=== PATIENT | female | born 1935 | race Caucasian/White ===

== ENCOUNTER → 2018-07-21 | Outpatient (CLI) | payer MEDICARE ==
[~2018-07-21] MED LIST: ALBU2.5V8 INH; ALPR0.5T6 PO; AMLO10TA8 PO; FLUT1DIS3 IH; FLUT9.9S NS; GADOBUTROL 7.5 MMOL/7.5 ML VIAL IV ONE; HYDR12.575 PO; LISI-130 PO; OMEP20CA10 PO; SERT100T PO
--- NOTE | 2018-07-21 13:17 | KCIC ---
MRI Brain with and without contrast History: Achalasia, memory deficit, speech difficulty for about 9 months, Givens's palsy Technique: Multiplanar, multi sequential pre and postcontrast MR imaging was performed of the brain. Comparison: June 15, 2010 Findings: There is motion degradation. There is mild supratentorial atrophy somewhat greater of the parietal lobes. Ventricular size is proportionate to the sulcal spaces. There is mild T2 and FLAIR hyperintense abnormality of the supratentorial periventricular white matter bilaterally and also some minimal involvement of the deep white matter greatest of the frontoparietal lobes, overall extent fairly similar compared with previous exam. Moderate T2 and FLAIR hyperintense signal abnormality of the rudy has progressed in interval. There is no nodular parenchymal or leptomeningeal enhancement, intra-axial mass effect, midline shift, extra-axial fluid collection. There is no significant hemosiderin deposition of the brain parenchyma. There has been lens surgery bilaterally. There is preservation of the major intracranial flow-voids at the skull base. There is very minimal patchy ethmoid air cell mucosal thickening. Mastoid air cells are overall aerated. Cerebellar tonsils are normal in location. There is preservation of marrow signal of the clivus. There is no abnormality of pineal gland or pituitary gland. Small foci of signal change of right parietal and central suboccipital scalp may be due to complex sebaceous cysts, do not convincingly enhance. Impression: 1. There is no evidence of recent infarct or abnormal intracranial enhancement. There is multifocal scattered T2 and FLAIR hyperintense signal abnormality of the supratentorial parenchyma rudy, progressed of the rudy in the interval. Nonspecific findings are more commonly due to chronic microvascular ischemic disease in a patient this age. There is mild supratentorial atrophy somewhat greater of the parietal lobes. Electronically signed by: Saurabh Bradley MD (07/21/2018 1:14 PM) [facility]
== END | disposition home or self-care (01) ==
LOC: KCIC MRI 11:28
PROVIDERS: ATTEND Family Medicine
DX: G31.89 Other specified degenerative diseases of nervous system (principal); R90.82 White matter disease, unspecified
CPT/HCPCS: 70553; A9585

== ENCOUNTER 2018-11-11 20:13 | Inpatient (IN) | payer MEDICARE ==
[~2018-11-11] VITALS: Ht 149.9 cm; Wt 72.1 kg
[~2018-11-11 20:13] MED LIST changes: -GADOBUTROL 7.5 MMOL/7.5 ML VIAL IV ONE
[2018-11-11] MEDS ORDERED: IV NORMAL SALINE 500ML BAG 500 ML IV ONE (20:30)
[2018-11-11 20:41] LABS: BASO % 0 % (0-3); EOS # 0.1 x10^3/uL (0.0-0.7); EOS % 2 % (0-3); HEMATOCRIT 36.7 % (36.0-47.0); HEMOGLOBIN 12.8 g/dL (12.0-15.5); LYMPH # 1.9 x10^3/uL (1.0-4.8); LYMPH % 31 % (24-48); MEAN CORPUSCULAR HEMOGLOBIN 31 pg (25-35); MEAN CORPUSCULAR HGB CONC 35 g/dL (31-37); MEAN CORPUSCULAR VOLUME 90 fL (79-100); MONO # 0.4 x10^3/uL (0.0-1.1); MONO % 6 % (0-9); NEUT # 3.9 x10^3/uL (1.8-7.7); NEUT % 61 % (31-73); PLATELET COUNT 231 x10^3/uL (140-400); RED BLOOD COUNT 4.09 x10^6/uL (3.50-5.40); RED CELL DISTRIBUTION WIDTH 14.2 % (11.5-14.5); WHITE BLOOD COUNT 6.4 x10^3/uL (4.0-11.0)
[2018-11-11 20:56] LABS: ALBUMIN 3.8 g/dL (3.4-5.0); ALBUMIN/GLOBULIN RATIO 1.1 (1.0-1.7); CALCIUM 9.3 mg/dL (8.5-10.1); CREATININE 1.2 mg/dL (0.6-1.0); GFR 43.1; MAGNESIUM 1.8 mg/dL (1.8-2.4); TOTAL BILIRUBIN 0.6 mg/dL (0.2-1.0); TOTAL PROTEIN 7.4 g/dL (6.4-8.2)
--- NOTE | 2018-11-11 20:56 | RAD ---
CT HEAD INDICATION: New onset seizure COMPARISON: 03/11/2011 Exposure: One or more of the following individualized dose reduction techniques were utilized for this examination: 1. Automated exposure control 2. Adjustment of the mA and/or kV according to patient size 3. Use of iterative reconstruction technique TECHNIQUE: 5 mm contiguous axial images were obtained from the skull base to the vertex in both bone and soft tissue algorithm. FINDINGS: Mild bilateral periventricular white matter hypodensities likely chronic small vessel ischemic disease. No evidence of acute intracranial hemorrhage. No extra-axial fluid collections. No mass effect or midline shift. Ventricular size is appropriate. Basal cisterns are patent. No fractures identified.Ramirez-white differentiation is preserved.Globes and orbits are within normal limits. Paranasal sinuses and mastoid air cells are clear. IMPRESSION: No acute intracranial findings. Electronically signed by: Jun Mas MD (11/11/2018 8:53 PM) [facility]
[2018-11-11 20:59] LABS: POTASSIUM 2.7 mmol/L (3.5-5.1)
--- NOTE | 2018-11-11 21:00 | RAD ---
EXAM: CHEST 1 VIEW History: Altered mental status COMPARISON: 03/11/2011 TECHNIQUE: Single portable radiograph of the chest FINDINGS: Mild cardiomegaly. Mild linear right lung base atelectasis or scarring. The costophrenic sulci are clear and well demarcated. IMPRESSION: Linear right lung base atelectasis or scarring. Electronically signed by: Jun Mas MD (11/11/2018 8:57 PM) [facility]
[2018-11-11 21:15] LABS: BILIRUBIN,URINE NEGATIVE (NEG); CLARITY,URINE CLEAR; COLOR,URINE YELLOW; NITRITE,URINE NEGATIVE (NEG); PH,URINE 7.5; PROTEIN,URINE NEGATIVE (NEG-TRACE)
[2018-11-11 21:25] LABS: BACTERIA,URINE FEW /HPF (0-FEW); SQUAMOUS EPITHELIAL CELL,UR FEW /LPF; WBC,URINE TNTC /HPF (0-4)
--- NOTE | 2018-11-11 21:47 | PHYS DOC ---
Past Medical History Past Medical History: Anxiety, Asthma, Bronchitis, Depression, GERD, High Cholesterol, Hypertension, Stroke Additional Past Medical Histor: LOW POTASSIUM Past Surgical History: Hysterectomy Additional Past Surgical Histo: CARDIAC ABLASION Alcohol Use: None Drug Use: None Adult General Chief Complaint Chief Complaint: SEIZURE HPI HPI Patient is a 83 year old [F P/W NEW SEIZURE FIRST TIME SITTING ON COUCH WITNESSED TONIC CLONIC POSTICTAL PERIOD POSITIVE URINE INCONTINENCE ON EMS ARRIVAL PT WAS ALERT PT HAS NO H/A NOW JUST FEELS TIRED ALL OVER (LIKE I RAN A MARATHON SHE SAYS) NO FEVER NO VOMITING LIVES ALONE THEY DONT THINK SHE IS EATING THAT WELL Review of Systems Review of Systems Constitutional: Denies fever or chills [] Eyes: Denies change in visual acuity, redness, or eye pain [] HENT: Denies nasal congestion or sore throat [] Respiratory: Denies cough or shortness of breath [] Cardiovascular: No additional information not addressed in HPI [] GI: Denies abdominal pain, nausea, vomiting, bloody stools or diarrhea [] Endocrine: Denies polyuria or polydipsia [] All other systems were reviewed and found to be within normal limits, except as documented in this note. Current Medications Current Medications Current Medications Medications (Trade) Dose Ordered Sig/Thaddeus Start Time Stop Time Status Last Admin Dose Admin Lorazepam (Ativan Inj) 0.5 mg 1X ONCE 11/11/18 20:30 11/11/18 20:31 DC Sodium Chloride 500 ml @ 500 mls/hr 1X ONCE 11/11/18 20:30 11/11/18 21:29 DC 11/11/18 20:58 500 MLS/HR Allergies Allergies Allergies Coded Allergies Type Severity Reaction Last Updated Verified No Known Drug Allergies 07/21/18 No Physical Exam Physical Exam Constitutional: Well developed, well nourished, no acute distress, non-toxic appearance. [] HENT: Normocephalic, atraumatic, bilateral external ears normal, oropharynx moist, no oral exudates, nose normal. [] Eyes: PERRLA, EOMI, conjunctiva normal, no discharge. [] Neck: Normal range of motion, no tenderness, supple, no stridor. [] Cardiovascular:Heart rate regular rhythm, no murmur [] Lungs & Thorax: Bilateral breath sounds clear to auscultation [] Abdomen: Bowel sounds normal, soft, no tenderness, no masses, no pulsatile masses. [] Skin: Warm, dry, no erythema, no rash. [] Back: No tenderness, no CVA tenderness. [] Extremities: No tenderness, no cyanosis, no clubbing, ROM intact, no edema. [] Neurologic: Alert and oriented X 3, normal motor function, normal sensory funct ion, no focal deficits noted. [] Psychologic: Affect normal, judgement normal, mood normal. [] Current Patient Data Vital Signs Vital Signs Date Time Temp Pulse Resp B/P (MAP) Pulse Ox O2 Delivery O2 Flow Rate FiO2 11/11/18 21:15 60 14 96 11/11/18 20:41 98.2 140/66 (90) Room Air 98.2 Lab Values Laboratory Tests Test 11/11/18 20:30 11/11/18 21:08 White Blood Count 6.4 x10^3/uL (4.0-11.0) Red Blood Count 4.09 x10^6/uL (3.50-5.40) Hemoglobin 12.8 g/dL (12.0-15.5) Hematocrit 36.7 % (36.0-47.0) Mean Corpuscular Volume 90 fL (79-100) Mean Corpuscular Hemoglobin 31 pg (25-35) Mean Corpuscular Hemoglobin Concent 35 g/dL (31-37) Red Cell Distribution Width 14.2 % (11.5-14.5) Platelet Count 231 x10^3/uL (140-400) Neutrophils (%) (Auto) 61 % (31-73) Lymphocytes (%) (Auto) 31 % (24-48) Monocytes (%) (Auto) 6 % (0-9) Eosinophils (%) (Auto) 2 % (0-3) Basophils (%) (Auto) 0 % (0-3) Neutrophils # (Auto) 3.9 x10^3/uL (1.8-7.7) Lymphocytes # (Auto) 1.9 x10^3/uL (1.0-4.8) Monocytes # (Auto) 0.4 x10^3/uL (0.0-1.1) Eosinophils # (Auto) 0.1 x10^3/uL (0.0-0.7) Basophils # (Auto) 0.0 x10^3/uL (0.0-0.2) Sodium Level 142 mmol/L (136-145) Potassium Level 2.7 mmol/L (3.5-5.1) *L Chloride Level 103 mmol/L (98-107) Carbon Dioxide Level 28 mmol/L (21-32) Anion Gap 11 (6-14) Blood Urea Nitrogen 24 mg/dL (7-20) H Creatinine 1.2 mg/dL (0.6-1.0) H Estimated GFR (Cockcroft-Gault) 43.1 BUN/Creatinine Ratio 20 (6-20) Glucose Level 133 mg/dL (70-99) H Calcium Level 9.3 mg/dL (8.5-10.1) Magnesium Level 1.8 mg/dL (1.8-2.4) Total Bilirubin 0.6 mg/dL (0.2-1.0) Aspartate Amino Transferase (AST) 21 U/L (15-37) Alanine Aminotransferase (ALT) 16 U/L (14-59) Alkaline Phosphatase 62 U/L (46-116) Troponin I Quantitative < 0.017 ng/mL (0.000-0.055) Total Protein 7.4 g/dL (6.4-8.2) Albumin 3.8 g/dL (3.4-5.0) Albumin/Globulin Ratio 1.1 (1.0-1.7) Urine Collection Type Unknown Urine Color Yellow Urine Clarity Clear Urine pH 7.5 Urine Specific [place] 1.020 Urine Protein Negative mg/dL (NEG-TRACE) Urine Glucose (UA) Negative mg/dL (NEG) Urine Ketones (Stick) Negative mg/dL (NEG) Urine Blood Negative (NEG) Urine Nitrite Negative (NEG) Urine Bilirubin Negative (NEG) Urine Urobilinogen Dipstick 1.0 mg/dL (0.2 mg/dL) Urine Leukocyte Esterase Large (NEG) Urine RBC 6-10 /HPF (0-2) Urine WBC Tntc /HPF (0-4) Urine Squamous Epithelial Cells Few /LPF Urine Bacteria Few /HPF (0-FEW) Laboratory Tests 11/11/18 20:30 Laboratory Tests 11/11/18 20:30 EKG EKG []EKG shows a normal sinus rhythm rate of 58 QTc 429 no STEMI no ischemic changes Radiology/Procedures Radiology/Procedures [] Impressions: FINDINGS: Mild bilateral periventricular white matter hypodensities likely chronic small vessel ischemic disease. No evidence of acute intracranial hemorrhage. No extra-axial fluid collections. No mass effect or midline shift. Ventricular size is appropriate. Basal cisterns are patent. No fractures identified.Ramirez-white differentiation is preserved.Globes and orbits are within normal limits. Paranasal sinuses and mastoid air cells are clear. IMPRESSION: No acute intracranial findings. Electronically signed by: Jun Mas MD (11/11/2018 8:53 PM) [facility] Course & Med Decision Making Course & Med Decision Making Pertinent Labs and Imaging studies reviewed. (See chart for details) []NEW SEIZURE NOW ALERT AND RESOPNSIVE VITALS GOOD CT HEAD NEG HYPOK NOTED PROBABLY NOT CASUE OF SEIZURE PER SE BUT WILL REPLETE EKG LOOKED GOOD D/W STEVEN AGREE TO ADMIT NEURO CONSULT REPLETEK. PT DOES HAVE HX OF MICROVACULAR DISEASE ON MRI FROM THE [facility] PERHAPS THIS IS CONTIRBUTING LATER ON NOTED U/A POSITIVE SO ADDED CEFTRIAXONE WELL. Dragon Disclaimer Dragon Disclaimer This electronic medical record was generated, in whole or in part, using a voice recognition dictation system. Departure Departure Impression: Primary Impression: Hypokalemia Additional Impression: Seizure Disposition: ADMITTED INPATIENT Admitting Physician: Antonio Alfonso Condition: STABLE Referrals: SADAF ALANIZ MD (PCP) Problem Qualifiers ULI SMALL MD Nov 11, 2018 21:47
[2018-11-11] MEDS ORDERED: cefTRIAXone IV Push 1 GM VIAL. IVP ONE (22:00)
[2018-11-11] MEDS: IV NORMAL SALINE 1000ML BAG 1,000 ML IV SCH (22:00)
[2018-11-11 23:00] VITALS: BP 122/41
[2018-11-11] MEDS: POTASSIUM CHLORIDE 10MEQ 100 ML IV SCH (23:01)
[2018-11-12] VITALS (8 sets, daily range): BP systolic 124–141; BP diastolic 45–72
[2018-11-12] MEDS: POTASSIUM CHLORIDE 10MEQ 100 ML IV SCH ×3 (01:00→02:41)
[2018-11-12] MEDS ORDERED: ATOR20TA58 PO (03:21)
[2018-11-12] MEDS ORDERED: LIDO1ADH44 TP (03:21)
[2018-11-12 05:40] LABS: CALCIUM 8.7 mg/dL (8.5-10.1); GFR 53.2; POTASSIUM 3.7 mmol/L (3.5-5.1)
--- NOTE | 2018-11-12 10:09 | EKG ---
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
[2018-11-12] MEDS ORDERED: METHYL SALICYLATE/MENTHOL TOPICAL OINTMENT 29GM TUBE. TP PRN (11:45)
[2018-11-12] MEDS ORDERED: ALBUTEROL SULFATE 2.5 MG/3 ML NEBU. INH PRN (11:45)
--- NOTE | 2018-11-12 12:40 | HP ---
ADMIT DATE: CHIEF COMPLAINT AND HISTORY OF PRESENT ILLNESS: This 83-year-old white female, patient of Dr. Faina Alfonso's admitted through the Emergency Room by ambulance after a witnessed seizure at home on the day of admission at her daughter's house. Both daughters are present during the interview with the patient this morning. Briefly, the patient felt hot inside knew something was the matter, requested her daughter to call the ambulance and then slumped over beginning shaking what is described as a tonic-clonic type seizure activity. It lasted a minute or less. She did have loss of urine with the episode and was tired for a period of time afterwards for up to 2-4 hours. She does remember the ambulance coming to pick her up as well as trip to the Emergency Room and everything since then. She has never had an event like this before. She denies any palpitations, chest pain, shortness of breath associated with the same. She was found to have profound hypokalemia on admission and this was replaced. PAST MEDICAL HISTORY: Remarkable for anxiety, depression, asthma, GERD, hyperlipidemia, hypertension, history of her prior stroke as noted on MRI with a small vascular disease. 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 Differences since that point in time have been predominantly with her speech and she is currently getting speech therapy from the home health with aphasic type speech errors that she never had prior to the same. She also has a history of cardiac ablation as well as hysterectomy in the past. MEDICATIONS: Meds were brought with the patient, listed on the computer and have been addressed. ALLERGIES: She has no known drug allergies. SOCIAL HISTORY: She is , nonsmoker, nondrinker, does not abuse drugs. Has very supportive family. FAMILY HISTORY: Noncontributory. REVIEW OF SYSTEMS: As mentioned above. PHYSICAL EXAMINATION: GENERAL: She is a well-developed, well-nourished white female, in no acute distress. VITAL SIGNS: Stable. She is afebrile. HEAD, EYES, EARS, NOSE AND THROAT: Unremarkable. NECK: Supple without bruit or thyromegaly. CHEST: Clear to auscultation and percussion. HEART: Regular rate and rhythm without S3, S4 or murmur. ABDOMEN: Soft, nontender, without hepatosplenomegaly or masses. EXTREMITIES: Without cyanosis, clubbing or edema. NEUROLOGIC: Nonfocal other than some mild aphasic speech errors. LABORATORY DATA: Lab review since admission includes a CBC that is unremarkable. Chem profile other than hypokalemia with a potassium of 3.7, this is up to 2.7 on admission and is up to 3.7 this morning and urinalysis that shows evidence of urinary tract infection. IMPRESSION: 1. Seizure, which sounds may be syncopal related with her having a warning that was happening, but will await Neurology opinion. 2. Urinary tract infection. 3. Hypertension. PLAN: Continue Rocephin. Restart home meds. Await neurological opinion. Potassium will recheck again in the morning, I am going to hold her hydrochlorothiazide at this point. KENDALL STEWART MD DR: HARISH/miky JOB#: [id number] / [id number] FAINA Arriaga MD
[2018-11-12] MEDS: IV NORMAL SALINE 1000ML BAG 1,000 ML IV SCH (12:43)
[2018-11-12] MEDS: FLUTICASONE 50MCG/NASAL SPRAY 16GM BOTTLE. NS SCH (12:44)
[2018-11-12] MEDS: cefTRIAXone IV Push 1 GM VIAL. IVP SCH (12:44)
[2018-11-12] MEDS: amLODIPine BESYLATE 10 MG TABLET PO SCH (12:45)
[2018-11-12] MEDS: LISINOPRIL 20 MG TABLET PO SCH (12:45)
[2018-11-12] MEDS: SERTRALINE 50 MG TABLET. PO SCH (12:46)
--- NOTE | 2018-11-12 16:09 | PDOC2 ---
NEUROLOGY CONSULT Date of Admission Date of Admission Full Report Dictated Patient is a pleasant 83-year-old woman who had an episode of syncope while sitting on the couch. She had a prodrome of vertigo and feeling extremely hot. She then had shaking for about 45 seconds. Paramedics arrived within a few minutes that [place]. She was able to interact and was oriented with a car rental deliverer. I do not feel this represented seizure but represented syncope. Cardiac investigation is indicated. She has word finding difficulty which has been present for some time and may be progressive. Outpatient neuropsychological testing may be indicated to look for underlying d ementia. DATE: 11/12/18 TIME: 16:08 Current Medications Current Medications Current Medications Lorazepam (Ativan Inj) 0.5 mg 1X ONCE IV ; Start 11/11/18 at 20:30; Stop 11/11/18 at 20:31; Status DC Sodium Chloride 500 ml @ 500 mls/hr 1X ONCE IV Last administered on 11/11/18at 20:58; Start 11/11/18 at 20:30; Stop 11/11/18 at 21:29; Status DC Ceftriaxone Sodium (Rocephin) 1 gm 1X ONCE IVP Last administered on 11/11/18at 23:16; Start 11/11/18 at 22:00; Stop 11/11/18 at 22:01; Status DC Potassium Chloride/Water 100 ml @ 100 mls/hr Q1H IV Last administered on 11/12/18at 03:54; Start 11/11/18 at 22:00; Stop 11/12/18 at 01:59; Status DC Sodium Chloride 1,000 ml @ 75 mls/hr [id number] IV Last administered on 11/12/18at 12:47; Start 11/11/18 at 22:00; Stop 11/12/18 at 21:59 Albuterol Sulfate (Ventolin Neb Soln) 0.83 mg PRN Q6HRS PRN INH SHORTNESS OF BREATH; Start 11/12/18 at 11:45 Alprazolam (Xanax) 0.5 mg PRN Q6HRS PRN PO ANXIETY / AGITATION; Start 11/12/18 at 11:45 Amlodipine Besylate (Norvasc) 10 mg DAILY PO Last administered on 11/12/18at 12:47; Start 11/12/18 at 12:00 Atorvastatin Calcium (Lipitor) 20 mg QHS PO ; Start 11/12/18 at 21:00 Lisinopril (Prinivil) 40 mg DAILY PO Last administered on 11/12/18at 12:47; Start 11/12/18 at 12:00 Fluticasone Propionate (Flonase) 2 spray DAILY NS Last administered on 11/12/18 12:47; Start 11/12/18 at 12:00 Multi-Ingredient Ointment (Analgesic Honor) 1 bindu PRN DAILY PRN TP LEG PAIN; Start 11/12/18 at 11:45 Pantoprazole Sodium (Protonix) 40 mg DAILYAC PO ; Start 11/13/18 at 07:30 Sertraline HCl (Zoloft) 100 mg DAILY PO Last administered on 11/12/18 12:47; Start 11/12/18 at 12:00 Ceftriaxone Sodium (Rocephin) 1 gm Q24H IVP Last administered on 11/12/18at 12:47; Start 11/12/18 at 12:00 Lactobacillus Rhamnosus (Culturelle) 1 cap BID PO ; Start 11/12/18 at 21:00 Active Scripts Active Reported Atorvastatin Calcium 20 Mg Tablet 1 Tab PO DAILY Aspercreme (Lidocaine) 1 Each Adh..patch 1 Each TP PRN DAILY PRN Lisinopril 40 Mg Tablet 40 PO DAILY Amlodipine Besylate 10 Mg Tablet 10 Mg PO DAILY Zoloft (Sertraline Hcl) 100 Mg Tablet 100 Mg PO DAILY Omeprazole 20 Mg Capsule.dr 20 Mg PO DAILY Alprazolam 0.5 Mg Tablet 0.5 Mg PO PRN Q6HRS PRN Advair 250-50 Diskus (Fluticasone/Salmeterol) 1 Each Disk.w.dev Unknown Dose IH BID Proair Hfa Inhaler (Albuterol Sulfate) 8.5 Gm Hfa.aer.ad Unknown Dose INH PRN Q6HRS PRN Hydrochlorothiazide Capsule (Hydrochlorothiazide) 12.5 Mg Capsule 1 Cap PO DAILY Flonase Allergy Relief (Fluticasone Propionate) 9.9 Ml [place].susp 2 Sprays NS DAILY Allergies Allergies: Coded Allergies: No Known Drug Allergies (Unverified , 07/21/18) Vitals VITALS Vital Signs Date Time Temp Pulse Resp B/P (MAP) Pulse Ox O2 Delivery O2 Flow Rate FiO2 11/12/18 15:00 98.4 60 18 137/62 (87) 94 Room Air 98.4 Labs Labs Laboratory Tests Test 11/11/18 20:30 11/11/18 21:08 11/12/18 04:25 White Blood Count 6.4 x10^3/uL (4.0-11.0) Red Blood Count 4.09 x10^6/uL (3.50-5.40) Hemoglobin 12.8 g/dL (12.0-15.5) Hematocrit 36.7 % (36.0-47.0) Mean Corpuscular Volume 90 fL (79-100) Mean Corpuscular Hemoglobin 31 pg (25-35) Mean Corpuscular Hemoglobin Concent 35 g/dL (31-37) Red Cell Distribution Width 14.2 % (11.5-14.5) Platelet Count 231 x10^3/uL (140-400) Neutrophils (%) (Auto) 61 % (31-73) Lymphocytes (%) (Auto) 31 % (24-48) Monocytes (%) (Auto) 6 % (0-9) Eosinophils (%) (Auto) 2 % (0-3) Basophils (%) (Auto) 0 % (0-3) Neutrophils # (Auto) 3.9 x10^3/uL (1.8-7.7) Lymphocytes # (Auto) 1.9 x10^3/uL (1.0-4.8) Monocytes # (Auto) 0.4 x10^3/uL (0.0-1.1) Eosinophils # (Auto) 0.1 x10^3/uL (0.0-0.7) Basophils # (Auto) 0.0 x10^3/uL (0.0-0.2) Sodium Level 142 mmol/L (136-145) 144 mmol/L (136-145) Potassium Level 2.7 mmol/L (3.5-5.1) 3.7 mmol/L (3.5-5.1) Chloride Level 103 mmol/L (98-107) 109 mmol/L (98-107) Carbon Dioxide Level 28 mmol/L (21-32) 26 mmol/L (21-32) Anion Gap 11 (6-14) 9 (6-14) Blood Urea Nitrogen 24 mg/dL (7-20) 20 mg/dL (7-20) Creatinine 1.2 mg/dL (0.6-1.0) 1.0 mg/dL (0.6-1.0) Estimated GFR (Cockcroft-Gault) 43.1 53.2 BUN/Creatinine Ratio 20 (6-20) Glucose Level 133 mg/dL (70-99) 100 mg/dL (70-99) Calcium Level 9.3 mg/dL (8.5-10.1) 8.7 mg/dL (8.5-10.1) Magnesium Level 1.8 mg/dL (1.8-2.4) Total Bilirubin 0.6 mg/dL (0.2-1.0) Aspartate Amino Transf (AST/SGOT) 21 U/L (15-37) Alanine Aminotransferase (ALT/SGPT) 16 U/L (14-59) Alkaline Phosphatase 62 U/L (46-116) Troponin I Quantitative < 0.017 ng/mL (0.000-0.055) Total Protein 7.4 g/dL (6.4-8.2) Albumin 3.8 g/dL (3.4-5.0) Albumin/Globulin Ratio 1.1 (1.0-1.7) Urine Collection Type Unknown Urine Color Yellow Urine Clarity Clear Urine pH 7.5 Urine Specific [place] 1.020 Urine Protein Negative mg/dL (NEG-TRACE) Urine Glucose (UA) Negative mg/dL (NEG) Urine Ketones (Stick) Negative mg/dL (NEG) Urine Blood Negative (NEG) Urine Nitrite Negative (NEG) Urine Bilirubin Negative (NEG) Urine Urobilinogen Dipstick 1.0 mg/dL (0.2 mg/dL) Urine Leukocyte Esterase Large (NEG) Urine RBC 6-10 /HPF (0-2) Urine WBC Tntc /HPF (0-4) Urine Squamous Epithelial Cells Few /LPF Urine Bacteria Few /HPF (0-FEW) Laboratory Tests Test 11/11/18 20:30 11/11/18 21:08 11/12/18 04:25 White Blood Count 6.4 x10^3/uL (4.0-11.0) Red Blood Count 4.09 x10^6/uL (3.50-5.40) Hemoglobin 12.8 g/dL (12.0-15.5) Hematocrit 36.7 % (36.0-47.0) Mean Corpuscular Volume 90 fL (79-100) Mean Corpuscular Hemoglobin 31 pg (25-35) Mean Corpuscular Hemoglobin Concent 35 g/dL (31-37) Red Cell Distribution Width 14.2 % (11.5-14.5) Platelet Count 231 x10^3/uL (140-400) Neutrophils (%) (Auto) 61 % (31-73) Lymphocytes (%) (Auto) 31 % (24-48) Monocytes (%) (Auto) 6 % (0-9) Eosinophils (%) (Auto) 2 % (0-3) Basophils (%) (Auto) 0 % (0-3) Neutrophils # (Auto) 3.9 x10^3/uL (1.8-7.7) Lymphocytes # (Auto) 1.9 x10^3/uL (1.0-4.8) Monocytes # (Auto) 0.4 x10^3/uL (0.0-1.1) Eosinophils # (Auto) 0.1 x10^3/uL (0.0-0.7) Basophils # (Auto) 0.0 x10^3/uL (0.0-0.2) Sodium Level 142 mmol/L (136-145) 144 mmol/L (136-145) Potassium Level 2.7 mmol/L (3.5-5.1) 3.7 mmol/L (3.5-5.1) Chloride Level 103 mmol/L (98-107) 109 mmol/L (98-107) Carbon Dioxide Level 28 mmol/L (21-32) 26 mmol/L (21-32) Anion Gap 11 (6-14) 9 (6-14) Blood Urea Nitrogen 24 mg/dL (7-20) 20 mg/dL (7-20) Creatinine 1.2 mg/dL (0.6-1.0) 1.0 mg/dL (0.6-1.0) Estimated GFR (Cockcroft-Gault) 43.1 53.2 BUN/Creatinine Ratio 20 (6-20) Glucose Level 133 mg/dL (70-99) 100 mg/dL (70-99) Calcium Level 9.3 mg/dL (8.5-10.1) 8.7 mg/dL (8.5-10.1) Magnesium Level 1.8 mg/dL (1.8-2.4) Total Bilirubin 0.6 mg/dL (0.2-1.0) Aspartate Amino Transf (AST/SGOT) 21 U/L (15-37) Alanine Aminotransferase (ALT/SGPT) 16 U/L (14-59) Alkaline Phosphatase 62 U/L (46-116) Troponin I Quantitative < 0.017 ng/mL (0.000-0.055) Total Protein 7.4 g/dL (6.4-8.2) Albumin 3.8 g/dL (3.4-5.0) Albumin/Globulin Ratio 1.1 (1.0-1.7) Urine Collection Type Unknown Urine Color Yellow Urine Clarity Clear Urine pH 7.5 Urine Specific [place] 1.020 Urine Protein Negative mg/dL (NEG-TRACE) Urine Glucose (UA) Negative mg/dL (NEG) Urine Ketones (Stick) Negative mg/dL (NEG) Urine Blood Negative (NEG) Urine Nitrite Negative (NEG) Urine Bilirubin Negative (NEG) Urine Urobilinogen Dipstick 1.0 mg/dL (0.2 mg/dL) Urine Leukocyte Esterase Large (NEG) Urine RBC 6-10 /HPF (0-2) Urine WBC Tntc /HPF (0-4) Urine Squamous Epithelial Cells Few /LPF Urine Bacteria Few /HPF (0-FEW) LARISSA JULES MD Nov 12, 2018 16:09
[2018-11-12] MEDS: LACTOBACILLUS RHAMNOSUS GG 1 CAPSULE. PO SCH (21:55)
[2018-11-12] MEDS: ATORVASTATIN CALCIUM 20 MG TABLET PO SCH (21:55)
[2018-11-12] MEDS: ALPRAZolam 0.5 MG TABLET PO PRN (22:07)
[2018-11-13] VITALS (8 sets, daily range): BP systolic 109–143; BP diastolic 45–70
--- NOTE | 2018-11-13 01:54 | CONS ---
DATE OF CONSULTATION: 11/12/2018 REFERRING PHYSICIAN: Antonio Alfonso M.D. REASON FOR CONSULTATION: Syncope. HISTORY OF PRESENT ILLNESS: The patient is a very pleasant 83-year-old woman who had an episode of syncope last evening. She was at her daughter's house and had finished dinner. She was sitting on the couch. She explained to her daughter that she suddenly felt very vertiginous. She then claimed to feel very hot. At her home, she is normally cold and wears a blanket around her. She was advised to pull the blanket down, which she did. Following this, her eyes rolled in the back of her head and she had some bilateral shaking for under 145 seconds. Paramedics were summoned. The paramedics are only about a block and a half from her house and were there within a few minutes. When they arrived, she was able to answer questions of orientation. They carried her to the [facility] and brought her to [facility] Emergency Room. She was incontinent of urine for this but did not bite her tongue. She has not had a similar spell. This was not associated with any focal weakness or numbness. She feels generally washed out and weak. PAST MEDICAL HISTORY: 1. Generalized anxiety disorder for which she had previously been on sertraline. She did not think she needed it anymore, so she discontinued it early September. She is spiral downhill and restarted it about 2 weeks ago. 2. Depression. 3. Asthma. 4. Gastroesophageal reflux disease. 5. Hyperlipidemia. 6. Hypertension. 7. MRI noted chronic small vessel disease previously. 8. 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 9. Longstanding word finding difficulties which have worsened. 10. History of cardiac ablation. 11. Hysterectomy. ALLERGIES: No known allergies to drugs. MEDICINES PRIOR TO ADMISSION: Albuterol metered-dose inhaler as needed, alprazolam 0.5 mg every 6 hours as needed, amlodipine 10 mg, atorvastatin 20 mg, Flonase nasal, Advair 250/50 twice per day, hydrochlorothiazide, Aspercreme as needed, lisinopril 40 mg, omeprazole 20 mg, and sertraline 100 mg which was recently restarted. FAMILY HISTORY: Noncontributory. SOCIAL HISTORY: She quit smoking 22 years ago. She only rarely drinks alcohol. She has been a for 22 years. She lives alone, although at times various family members have lived with her. REVIEW OF SYSTEMS: She does not have headache. She has had some diminished vision. She has diminished hearing and uses bilateral hearing aids. She has been able to chew and swallow without difficulty. She has not had cough, cold or shortness of breath. There has been no chest pain. She occasionally has abdominal pain. She does have some bone and joint pain in the left knee and radiates down the left leg. She has not had fever or rash. She does have constipation, which has been helped by taking in prunes and bran cereal. She does not have genitourinary complaints. She does not complain of focal numbness. She feels generally weak. She normally gets around without a walker or cane but does not walk a long distance. She does complain of a great deal of anxiety as well as some depression. She does not complain of excessive bruising, bleeding or swelling. PHYSICAL EXAMINATION: VITAL SIGNS: The blood pressure was 137/62, pulse 60, respirations 18 and temperature 98.4 degrees Fahrenheit. Oximetry was 94% on room air. Her weight was 72.1 kilograms and height 59 inches with a calculated body mass index of 32.1. GENERAL: She was alert, awake and cooperative. Speech was fluent and clear. She did have some word finding difficulties at times but could easily get out her thoughts. Attention and concentration was intact. She appeared well groomed and well nourished. She was fully oriented. NEUROLOGIC: Examination of the cranial nerves revealed visual fitzgerald were full to confrontation. Extraocular movements were intact. The eyes were conjugate. Pursuit movements were smooth and saccadic eye movements were without dysmetria. Pupils were 2-3 mm. Funduscopic exam did not reveal papilledema, exudate or hemorrhage. Facial sensation was intact bilaterally. The muscles of mastication and facial expression were powerful symmetrically. Hearing was intact to finger rub. The palate arched symmetrically and the tongue was midline with full range of motion. Sternocleidomastoid and trapezius were powerful. Muscle bulk and tone was normal. There was no asterixis. She had occasional myoclonus. Power was full and symmetric in the upper and lower extremities. Reflexes 2/4 and symmetric in the upper and lower extremities. The toes were downgoing bilaterally. Coordination testing with ncfeyn-vv-gsnz, uypg-lc-vqie, fine motor and rapid alternating movements was fairly well performed. The sensory exam was intact to pain, light touch, proprioception, graphesthesia, cold thermal and vibration. There was no extinction to double simultaneous stimulation. Gait was not testable at this time. NECK: Auscultation of the carotid arteries did not reveal a bruit. HEART: Rhythm was regular without murmur. EXTREMITIES: Peripheral pulses were symmetric in the hands and feet. There was no edema or cyanosis. REVIEW OF LABORATORY DATA: CBC revealed a normal white blood cell count, hemoglobin, hematocrit and platelet count. Chemistries revealed normal sodium and potassium. Chloride was elevated at 109 and CO2 was normal. On 11/11/2018, the potassium was low at 2.7. Today, chemistry on 11/12 revealed normal BUN and creatinine with a GFR that calculated at 53.2. Glucose was 100. Calcium was 8.7, which was normal. Liver enzymes were not elevated and troponin was not elevated. Urinalysis was abnormal revealing a large amount of leukocyte esterase, 6-10 white cells and too numerous to count red blood cells. There were few squamous epithelial cells and a few bacteria. IMAGING: CT scan of the brain was performed without contrast on 11/11/2018. There were no acute findings. There was evidence of mild bilateral chronic small vessel disease. Chest x-ray was performed on 11/11/2018 and revealed linear right lung base atelectasis or scarring. IMPRESSION: The patient is a very pleasant 83-year-old woman who had an episode of syncope at home while sitting on the couch. This does not really sound like a seizure as she did not have a postictal state. Although she did shake and she was incontinent, she was able to wake up and talk to the paramedics, which was within a few minutes of spell. If she had had a generalized tonic-clonic seizure, I would anticipate she would have been unresponsive for at least 15-30 minutes. This is more likely related to a cardiac rhythm disturbance, hypotension or hypoglycemia. RECOMMENDATIONS: She should have cardiac investigation with an echocardiogram. We should check orthostatic blood pressures. Glucoses should be measured to look for aberrancies. She needs to work with the therapist to make sure she is stable. The family voiced concerns about her living alone at home. It sounds as if they do provide a great deal of support. I suggest they had conversations between the patient and family to determine what they are willing to provide for care and what the patient is capable of doing herself. They may also want to have a Life Alert as well as potentially a Nest camera that they can observe over the internet to make sure she is safe. She only lives 2 blocks away from her daughter. I appreciate being involved in her care. LARISSA JULES MD DR: BRYNN/miky JOB#: [id number] / [id number] Dr. STEVEN Odonnell DAVID MD ,
[2018-11-13] MEDS: PANTOPRAZOLE 40 MG TABLET.DR. PO SCH (08:22)
[2018-11-13] MEDS: SERTRALINE 50 MG TABLET. PO SCH ×2 (08:22→10:30)
[2018-11-13] MEDS: LACTOBACILLUS RHAMNOSUS GG 1 CAPSULE. PO SCH ×2 (08:22→20:14)
[2018-11-13] MEDS: amLODIPine BESYLATE 10 MG TABLET PO SCH (08:23)
[2018-11-13] MEDS: LISINOPRIL 20 MG TABLET PO SCH (08:23)
[2018-11-13] MEDS: FLUTICASONE 50MCG/NASAL SPRAY 16GM BOTTLE. NS SCH (08:24)
--- NOTE | 2018-11-13 09:17 | NUR ---
SW responding to a referral regarding pt doesn't feel safe going back home alone due to current condition. Chart reviewed and pt lives at home alone. PT pending. SW requested for OT orders as well. SW will await for PT/OT recommendation to assess skilled needs. Addendum: 11/13/18 at 1043 by SHANON CAMARILLO SW following pt. Spoke with PT and recommends SNU. MARQUISE spoke with pt, pt's daughters, Margot: [phone], Alexandrea: [phone] about SNU, medicare coverage and options. Family would like to discuss about SNU options and notify MARQUISE with preferred SNU facility. Will continue to follow. Addendum: 11/13/18 at 1110 by SHANON CAMARILLO Family would like an eval at [facility] Referral faxed. Pt acceptance and admission pending. Discussed with RN. Will continue to follow.
--- NOTE | 2018-11-13 09:40 | PDOC ---
SUBJECTIVE Subjective Doing ok this AM. Feels well apart from severe anxiety. She reports no other episodes of syncope or seizure like activity, able to get up to restroom this AM. OBJECTIVE Objective Reviewed. Vital Signs Vital Signs Date Time Temp Pulse Resp B/P (MAP) Pulse Ox O2 Delivery O2 Flow Rate FiO2 11/13/18 08:24 70 134/67 11/13/18 08:24 62 138/67 11/13/18 08:00 Room Air 11/13/18 07:10 70 18 134/67 (89) 93 Room Air 11/13/18 07:05 62 18 138/67 (90) 94 Room Air 11/13/18 07:00 97.8 59 18 143/63 (89) 91 Room Air 97.8 11/13/18 03:29 98.0 64 18 127/63 (84) 91 98.0 11/12/18 23:46 97.9 66 18 138/70 (92) 95 Room Air 97.9 11/12/18 19:50 Room Air 11/12/18 19:20 98.1 75 20 134/66 (88) 94 Room Air 98.1 11/12/18 19:15 98.1 73 20 129/72 (91) 92 Room Air 98.1 11/12/18 19:10 98.1 64 20 141/45 (77) 93 Room Air 98.1 11/12/18 15:00 98.4 60 18 137/62 (87) 94 Room Air 98.4 11/12/18 12:47 57 140/63 11/12/18 12:47 57 140/63 11/12/18 11:00 98.3 57 16 140/63 (88) 93 Room Air 98.3 I & O Intake and Output 11/13/18 07:00 Intake Total 690 ml Balance 690 ml Intake Oral 690 ml # Voids 4 # Bowel Movements 1 PHYSICAL EXAM Physical Exam Alert, oriented to self, location RRR, 2/6 systolic murmur CTAB Abd soft, NT/ND, normal bowel sounds No edema Cooperative Some expressive aphasia ASSESSMENT/PLAN Assessment/Plan Syncope vs seizure - appears more consistent with syncope given hx, neuro agrees Generalized anxiety Dementia No further neuro work up indicated at this time, will consider consult as outpt for dementia if pt desires Cards consult, echo today for syncope Decrease zoloft and cross taper with effexor PT/OT/ST for dc plan, will likely benefit from SNF COMMENT Lab Laboratory Tests Test 11/13/18 03:30 Thyroid Stimulating Hormone (TSH) 2.376 uIU/mL (0.358-3.74) SADAF ALANIZ MD Nov 13, 2018 09:40
[2018-11-13] MEDS: cefTRIAXone IV Push 1 GM VIAL. IVP SCH (11:24)
[2018-11-13] MEDS: VENLAFAXINE XR 37.5 MG CAP.ER.24H. PO SCH (11:25)
--- NOTE | 2018-11-13 12:56 | PDOC2 ---
CARDIAC CONSULT DATE OF CONSULT Date of Consult DATE: 11/13/18 TIME: 12:53 REASON FOR CONSULT Reason for Consult: Syncope REFERRING PHYSICIAN Referring Physician: Dr. Browning SOURCE Source: Chart review, Patient HISTORY OF PRESENT ILLNESS HISTORY OF PRESENT ILLNESS This is an 83 yo female who presented secondary to syncopal episode with possible seizure activity. Patient reports history of "fainting". Last episode was a couple of years ago. Patient was at [facility] house on Tuesday sitting on the couch. Reported to her daughter that she felt very dizzy and then became diaphoretic. Subsequently passed out for a few seconds. Daughter reports "jerking movements" of her upper body. EMS was called. Daughter reports she was confused and drowsy when she regained consciousness. Does have a history of tachyarrhythmia s/p ablation around [address] [facility]. Does not follow with medical record librarian. PAST MEDICAL HISTORY Cardiovascular: HTN, Other (tachyarrhythmia s/p ablation 1999) Pulmonary: Asthma CENTRAL NERVOUS SYSTEM: Dementia, TIA, Other ([place] Palsy ) GI: GERD Psych: Anxiety, Depression PAST SURGICAL HISTORY Past Surgical History: Hysterectomy, Other (cardiac ablation ) FAMILY HISTORY Family History: Hypertension SOCIAL HISTORY Smoke: No ALCOHOL: none Drugs: None Lives: Alone CURRENT MEDICATIONS CURRENT MEDICATIONS Current Medications Medications (Trade) Dose Ordered Sig/Thaddeus Route PRN Reason Start Time Stop Time Status Last Admin Dose Admin Atorvastatin Calcium (Lipitor) 20 mg QHS PO 11/12/18 21:00 11/12/18 21:55 Pantoprazole Sodium (Protonix) 40 mg DAILYAC PO 11/13/18 07:30 11/13/18 08:24 Lactobacillus Rhamnosus (Culturelle) 1 cap BID PO 11/12/18 21:00 11/13/18 08:24 Venlafaxine HCl (Effexor Xr) 37.5 mg DAILY PO 11/13/18 10:30 11/13/18 11:25 ALLERGIES ALLERGIES: Coded Allergies: No Known Drug Allergies (Unverified , 07/21/18) ROS Review of System 14 point ROS conducted with pertinent positives noted above in HPI. PHYSICAL EXAM General: Alert, Oriented X3, Cooperative, No acute distress HEENT: Atraumatic Lungs: Clear to auscultation, Normal air movement Heart: Regular rate, Normal S1, Normal S2, Other (2/6 systolic murmur ) Abdomen: Soft, No tenderness Extremities: No edema, Normal pulses Skin: No significant lesion Neuro: Normal speech, Sensation intact Psych/Mental Status: Mental status NL, Mood NL MUSCULOSKELETAL: Osteoarthritic changes both hands VITALS/I&O VITALS/I&O: Vital Signs Date Time Temp Pulse Resp B/P (MAP) Pulse Ox O2 Delivery O2 Flow Rate FiO2 11/13/18 11:00 97.5 72 18 125/55 (78) 94 Room Air 97.5 I & O 11/12/18 11/12/18 11/13/18 15:00 23:00 07:00 Intake Total 300 ml 390 ml 0 ml Balance 300 ml 390 ml 0 ml LABS Lab: Laboratory Tests Test 11/13/18 03:30 Thyroid Stimulating Hormone (TSH) 2.376 uIU/mL (0.358-3.74) ECHOCARDIOGRAM ECHOCARDIOGRAM <Conclusion> Left ventricle systolic function is normal. The Ejection Fraction is 55-60%. There is normal LV segmental wall motion. There is mild valvular aortic stenosis. Calculated aortic valve area is 1.5 cm2 with maximum pressure gradient of 21 mmHg and mean pressure gradient of 12 mmHg.Visually the valve appears moderately stenotic - clinical correlation recommendted. SADE VTI index is 0.5 suggestive of moderate . DATE: 01/20/17 1356 ASSESSMENT/PLAN ASSESSMENT/PLAN 1. Syncopal episode; ? seizure-like activity witness by daughter. No acute events noted on tele. Cannot rule out arrhythmia due to significant hypokalemia 2. Hypertension; controlled 3. Hypokalemia; replaced. 4. TEODORA 5. Aortic stenosis, mild per echo 2016 6. H/o tachyarrhythmia s/p ablation [place] [address] [facility] Recommendations Echo to assess LV systolic function, aortic stenosis Monitor K, replace as warranted Monitor tele Outpatient event monitor following discharge from rehab facility. FLO FUNES APRN Nov 13, 2018 12:56
--- NOTE | 2018-11-13 13:32 | CARD ---
MR#: [id number] Date of Study: 11/13/2018 Ordering Physician: LARISSA JULES, Referring Physician: LARISSA JULES Tech: Jordyn Phillip YAMILETH APPROVED REPORT EXAM: Two-dimensional and M-mode echocardiogram with Doppler and color Doppler. Other Information Quality : Good INDICATION Syncope 2D DIMENSIONS RVDd2.5 (2.9-3.5cm)Left Atrium(2D)2.5 (1.6-4.0cm) IVSd0.7 (0.7-1.1cm)Aortic Root(2D)2.6 (2.0-3.7cm) LVDd4.0 (3.9-5.9cm)LVOT Diameter1.9 (1.8-2.4cm) PWd0.8 (0.7-1.1cm)LVDs2.3 (2.5-4.0cm) FS (%) 30.0 %SV52.9 ml LVEF(%)60.0 (>50%) Aortic Valve AoV Peak Christopher.259.0cm/sAoV VTI60.0cm AO Peak GR.28.0mmHgLVOT Peak Christopher.111.5cm/s LVOT VTI 32.21cmAO Mean GR.17mmHg SADE (VMAX)1.02ux9DDB (VTI)1.47cm2 Mitral Valve MV E Ydlbfshm540.1cm/sMV DECEL OOZK492pa MV A Pzcvfinx336.6cm/sMV HMK01li E/A Ratio0.9MVA (PHT)3.27cm2 TDI E/Lateral E'9.5E/Medial E'12.8 Tricuspid Valve TR P. Yivlfjaf150ri/sRAP CKNLCCKK7rwMg TR Peak Gr.38daRtIYIQ29nzVg Pulmonary Vein S1 Okrhbfzt85.7cm/sD2 Qooueiuq33.2cm/s LEFT VENTRICLE The left ventricle is normal size. There is normal left ventricular wall thickness. The left ventricu lar systolic function is normal and the ejection fraction is within normal range. The Ejection Fracti on is 55-60%. There is normal LV segmental wall motion. Transmitral Doppler flow pattern is Grade I-a bnormal relaxation pattern. RIGHT VENTRICLE The right ventricle is normal size. The right ventricular systolic function is normal. ATRIA The left atrium size is normal. The right atrium size is normal. The interatrial septum is intact wit h no evidence for an atrial septal defect or patent foramen ovale as noted on 2-D or Doppler imaging. AORTIC VALVE The aortic valve is calcified and displays decreased opening. Doppler and Color Flow revealed no sign ificant aortic regurgitation. Calculated aortic valve area is 1.47 cm2 with maximum pressure gradient of 28 mmHg and mean pressure gradient of 17 mmHg. Doppler and color-flow analysis revealed mild aort ic stenosis. MITRAL VALVE The mitral valve is calcified but opens well. Mitral annular calcification is mild. There is no evide nce of mitral valve prolapse. There is no mitral valve stenosis. Doppler and Color-flow revealed trac e mitral regurgitation. TRICUSPID VALVE The tricuspid valve is normal in structure and function. Doppler and Color Flow revealed mild to mode rate tricuspid regurgitation. The PA pressure was estimated at 45 mmHg. There is no tricuspid valve s tenosis. PULMONIC VALVE The pulmonic valve is not well visualized. Doppler and Color Flow revealed no pulmonic valvular regur gitation. There is no pulmonic valvular stenosis. GREAT VESSELS The aortic root is normal in size. The ascending aorta is normal in size. The IVC is normal in size a nd collapses <50% with inspiration. PERICARDIAL EFFUSION There is no evidence of significant pericardial effusion. Critical Notification Critical Value: No <Conclusion> The left ventricle is normal size. The left ventricular systolic function is normal and the ejection fraction is within normal range. The Ejection Fraction is 55-60%. Calculated aortic valve area is 1.47 cm2 with maximum pressure gradient of 28 mmHg and mean pressure gradient of 17 mmHg. Doppler and color-flow analysis revealed mild aortic stenosis. Doppler and Color Flow revealed no significant aortic regurgitation. Doppler and Color-flow revealed trace mitral regurgitation. Doppler and Color Flow revealed mild to moderate tricuspid regurgitation. The PA pressure was estimated at 45 mmHg. Signed by : Manny Hawley MD Electronically Approved : 11/13/2018 13:31:38
--- NOTE | 2018-11-13 15:24 | NUR ---
MARQUISE following pt. Pt has been accepted at [facility] and facility will have a bed available upon dc. Pt will need one more midnight. Discussed with ALAN.
--- NOTE | 2018-11-13 19:27 | PDOC ---
PROGRESS NOTES Assessment Assessment IMPRESSION: Syncopal spells. Seizure evaluation. Hypokalemia, K+ 2.7. HTN. HLD. Obesity. RECOMMENDATIONS/PLAN: EEG. Lab: see orders. Treat medical diseases. Discussed with her family at bedside on 11/13/18. PAST MEDICAL HISTORY: 1. Generalized anxiety disorder for which she had previously been on sertraline. She did not think she needed it anymore, so she discontinued it early September. She is spiral downhill and restarted it about 2 weeks ago. 2. Depression. 3. Asthma. 4. Gastroesophageal reflux disease. 5. Hyperlipidemia. 6. Hypertension. 7. MRI noted chronic small vessel disease previously. 8. 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 9. Longstanding word finding difficulties which have worsened. 10. History of cardiac ablation. 11. Hysterectomy. ALLERGIES: No known allergies to drugs. FAMILY HISTORY: Noncontributory. SOCIAL HISTORY: She quit smoking 22 years ago. She only rarely drinks alcohol. She has been a for 22 years. She lives alone, although at times various family members have lived with her. REVIEW OF SYSTEMS: She does not have headache. She has had some diminished vision. She has diminished hearing and uses bilateral hearing aids. She has been able to chew and swallow without difficulty. She has not had cough, cold or shortness of breath. There has been no chest pain. She occasionally has abdominal pain. She does have some bone and joint pain in the left knee and radiates down the left leg. She has not had fever or rash. She does have constipation, which has been helped by taking in prunes and bran cereal. She does not have genitourinary complaints. She does not complain of focal numbness. She feels generally weak. She normally gets around without a walker or cane but does not walk a long distance. She does complain of a great deal of anxiety as well as some depression. She does not complain of excessive bruising, bleeding or swelling. MEDICATIONS: Refer to TOAN PHYSICAL EXAMINATION: General appearance in no acute distress. HEENT: Normocephalic and nontraumatic. Eyes, nose, ears, and throat are unremarkable. Hearing decrease. Neck is supple. No lymphadenopathy. No Crepitus. Cardiovascular: S1, S2, regular rate and rhythm. Pulmonary: Clear to auscultation bilaterally. Abdomen: Bowel sounds are positive. Abdomen is soft, nontender, and nondistended. Extremities: No rash, lesions, or edema. No restriction of range of motion NEUROLOGICAL EXAMINATION: Awake. Partially oriented to time, place and person. PERRL. EOMI. CN: no focal findings. Muscle tone: within normal. Muscle strength: 4 DTR: 2- Plantar reflex: Flexor response bilaterally Gait: not examined in bed. Sensory exam: no abnormal findings. No cerebellar signs elicited. F-T-N test fine. Objective Objective Vital Signs Date Time Temp Pulse Resp B/P (MAP) Pulse Ox O2 Delivery O2 Flow Rate FiO2 11/13/18 15:01 97.7 67 18 120/70 (87) 94 Room Air 97.7 Intake and Output 11/13/18 07:00 Intake Total 690 ml Balance 690 ml Intake Oral 690 ml # Voids 4 # Bowel Movements 1 Vitals Signs Vitals VS - Last 72 Hours, by Label Date Time Temp Pulse Resp B/P (MAP) Pulse Ox O2 Delivery O2 Flow Rate FiO2 11/13/18 15:01 97.7 67 18 120/70 (87) 94 Room Air 97.7 11/13/18 11:00 97.5 72 18 125/55 (78) 94 Room Air 97.5 11/13/18 08:24 70 134/67 11/13/18 08:24 62 138/67 11/13/18 08:00 Room Air 11/13/18 07:10 70 18 134/67 (89) 93 Room Air 11/13/18 07:05 62 18 138/67 (90) 94 Room Air 11/13/18 07:00 97.8 59 18 143/63 (89) 91 Room Air 97.8 11/13/18 03:29 98.0 64 18 127/63 (84) 91 98.0 11/12/18 23:46 97.9 66 18 138/70 (92) 95 Room Air 97.9 11/12/18 19:50 Room Air 11/12/18 19:20 98.1 75 20 134/66 (88) 94 Room Air 98.1 11/12/18 19:15 98.1 73 20 129/72 (91) 92 Room Air 98.1 11/12/18 19:10 98.1 64 20 141/45 (77) 93 Room Air 98.1 11/12/18 15:00 98.4 60 18 137/62 (87) 94 Room Air 98.4 11/12/18 12:47 57 140/63 11/12/18 12:47 57 140/63 11/12/18 11:00 98.3 57 16 140/63 (88) 93 Room Air 98.3 11/12/18 08:00 Room Air 11/12/18 07:00 98.4 63 16 136/61 (86) 93 Room Air 98.4 Laboratory Laboratory Laboratory Tests Test 11/13/18 03:30 Vitamin B12 Level 446 pg/mL (247-911) Thyroid Stimulating Hormone (TSH) 2.376 uIU/mL (0.358-3.74) Medication Medications Current Medications Atorvastatin Calcium (Lipitor) 20 mg QHS PO Last administered on 11/12/18at 21:55; Start 11/12/18 at 21:00 Lactobacillus Rhamnosus (Culturelle) 1 cap BID PO Last administered on 11/13/18at 08:24; Start 11/12/18 at 21:00 Pantoprazole Sodium (Protonix) 40 mg DAILYAC PO Last administered on 11/13/18at 08:24; Start 11/13/18 at 07:30 Sertraline HCl (Zoloft) 50 mg DAILY PO ; Start 11/13/18 at 10:30 Venlafaxine HCl (Effexor Xr) 37.5 mg DAILY PO Last administered on 11/13/18at 11:25; Start 11/13/18 at 10:30 Comment Review of Relevant I have reviewed the following items gilbert (where applicable) has been applied. SHAKEEL HOLDER MD Nov 13, 2018 19:27
[2018-11-13] MEDS: ATORVASTATIN CALCIUM 20 MG TABLET PO SCH (20:14)
[2018-11-13] MEDS: ALPRAZolam 0.5 MG TABLET PO PRN (20:17)
[2018-11-14] MEDS: ALPRAZolam 0.5 MG TABLET PO PRN (03:24)
[2018-11-14 03:56] VITALS: BP 142/67
[2018-11-14 07:00] VITALS: BP 132/72
[2018-11-14 07:00] LABS: CALCIUM 8.6 mg/dL (8.5-10.1); CREATININE 0.8 mg/dL (0.6-1.0); GFR 68.8; POTASSIUM 3.6 mmol/L (3.5-5.1)
[2018-11-14] MEDS ORDERED: SERT50TA8 PO (08:42)
[2018-11-14] MEDS ORDERED: VENL37.5 PO (08:42)
--- NOTE | 2018-11-14 08:44 | PDOC3 ---
Discharge Summary Date of Admission: Nov 11, 2018 Date of Discharge: Nov 14, 2018 Follow-Up: Other (after discharge from SNF) Admitting Diagnosis comment: Syncope vs seizure FINAL DIAGNOSIS Syncope Generalized anxiety Dementia Brief Hospital Course Ms. Pritchard is a 83 year old female with PMH of anxiety and dementia who presented to the ED via EMS for possible seizure. The incident was witnessed at home. The patient apparently started feeling hot and unwell, then slumped over and began shaking, this lasted for less than a minute. She was awake and talking with EMS when they arrived just a few minutes later. CT head was unremarkable for acute findings. Labs were remarkable only for mild TEODORA and K+ 2.7 which both improved on recheck. HCTZ was stopped. She was evaluated by Neuro and Cardiology who both agreed that syncope was more likely than seizure. She had no events on tele. An EEG was normal. Echo was unremarkable apart from mild aortic stenosis which was present previously. She continues to have significant anxiety on Zoloft, so we will cross taper off of Zoloft and change to Effexor. Other meds are unchanged. CONDITION AT DISCHARGE: Improved Discharge Medications Active Scripts Active Effexor Xr (Venlafaxine Hcl) 37.5 Mg Cap.er.24h 37.5 Mg PO DAILY 7 Days Increase to 75mg daily after 7 days, after completion of zoloft 50mg Sertraline Hcl 50 Mg Tablet 50 Mg PO DAILY 7 Days stop after 7 days Reported Atorvastatin Calcium 20 Mg Tablet 1 Tab PO DAILY Aspercreme (Lidocaine) 1 Each Adh..patch 1 Each TP PRN DAILY PRN Lisinopril 40 Mg Tablet 40 PO DAILY Amlodipine Besylate 10 Mg Tablet 10 Mg PO DAILY Omeprazole 20 Mg Capsule.dr 20 Mg PO DAILY Alprazolam 0.5 Mg Tablet 0.5 Mg PO PRN Q6HRS PRN Advair 250-50 Diskus (Fluticasone/Salmeterol) 1 Each Disk.w.dev Unknown Dose IH BID Proair Hfa Inhaler (Albuterol Sulfate) 8.5 Gm Hfa.aer.ad Unknown Dose INH PRN Q6HRS PRN Flonase Allergy Relief (Fluticasone Propionate) 9.9 Ml [place].susp 2 Sprays NS DAILY Vital Signs Vital Signs Date Time Temp Pulse Resp B/P (MAP) Pulse Ox O2 Delivery O2 Flow Rate FiO2 11/14/18 07:00 97.8 64 16 132/72 (92) 96 Room Air 97.8 Labs Laboratory Tests Test 11/13/18 03:30 11/14/18 05:50 Vitamin B12 Level 446 pg/mL (247-911) Thyroid Stimulating Hormone (TSH) 2.376 uIU/mL (0.358-3.74) Sodium Level 144 mmol/L (136-145) Potassium Level 3.6 mmol/L (3.5-5.1) Chloride Level 108 mmol/L (98-107) Carbon Dioxide Level 27 mmol/L (21-32) Anion Gap 9 (6-14) Blood Urea Nitrogen 15 mg/dL (7-20) Creatinine 0.8 mg/dL (0.6-1.0) Estimated GFR (Cockcroft-Gault) 68.8 Glucose Level 84 mg/dL (70-99) Calcium Level 8.6 mg/dL (8.5-10.1) Laboratory Tests Test 11/14/18 05:50 Sodium Level 144 mmol/L (136-145) Potassium Level 3.6 mmol/L (3.5-5.1) Chloride Level 108 mmol/L (98-107) Carbon Dioxide Level 27 mmol/L (21-32) Anion Gap 9 (6-14) Blood Urea Nitrogen 15 mg/dL (7-20) Creatinine 0.8 mg/dL (0.6-1.0) Estimated GFR (Cockcroft-Gault) 68.8 Glucose Level 84 mg/dL (70-99) Calcium Level 8.6 mg/dL (8.5-10.1) Allergies Allergies Coded Allergies Type Severity Reaction Last Updated Verified No Known Drug Allergies 07/21/18 No Disposition/Orders: D/C to Another Facility ([facility]) SADAF ALANIZ MD Nov 14, 2018 08:44
[2018-11-14] MEDS: LACTOBACILLUS RHAMNOSUS GG 1 CAPSULE. PO SCH (09:03)
[2018-11-14] MEDS: SERTRALINE 50 MG TABLET. PO SCH (09:03)
[2018-11-14] MEDS: LISINOPRIL 20 MG TABLET PO SCH (09:04)
[2018-11-14] MEDS: VENLAFAXINE XR 37.5 MG CAP.ER.24H. PO SCH (09:04)
[2018-11-14] MEDS: PANTOPRAZOLE 40 MG TABLET.DR. PO SCH (09:04)
[2018-11-14] MEDS: amLODIPine BESYLATE 10 MG TABLET PO SCH (09:04)
[2018-11-14] MEDS: FLUTICASONE 50MCG/NASAL SPRAY 16GM BOTTLE. NS SCH (09:05)
--- NOTE | 2018-11-14 09:26 | NUR ---
SW following pt. Pt has dc order for SNU but no dc instruction. RN and Physician notified. Addendum: 11/14/18 at 1548 by SHANON CAMARILLO Orders faxed to [facility] and pt will transport via facility arranged w/c andre at 1630. Pt's choice and rights forms signed by pt's daughter and copies placed on chart. Pt agreeable with plans.
--- NOTE | 2018-11-14 09:29 | SNU/HH DC ---
DISCHARGE ORDERS DISCHARGE INFORMATION: DISCHARGE DATE: Nov 14, 2018 CONDITION ON DISCHARGE: Stable CODE STATUS: Code Status: Full LONG-TERM: SNF STAY <30 DAYS: Yes POST DISCHARGE ORDERS: ACTIVITY ORDERS: Activity as tolerated DIET AFTER DISCHARGE: Regular TREATMENT/EQUIPMENT ORDERS: Physical Therapy For: Evalulation/Treatment Occupational Therapy For: Evaluation/Treatment Speech Language Pathology For: Evaluation/Treatment DISCHARGE MEDICATIONS: Home Meds Active Scripts Venlafaxine Hcl (EFFEXOR XR) 37.5 Mg Cap.er.24h, 37.5 MG PO DAILY for depression for 7 Days, #7 CAP.SR Increase to 75mg daily after 7 days, after completion of zoloft 50mg Prov:SADAF ALANIZ MD 11/14/18 Sertraline Hcl (SERTRALINE HCL) 50 Mg Tablet, 50 MG PO DAILY for depression for 7 Days, #7 TAB stop after 7 days Prov:SADAF ALANIZ MD 11/14/18 Reported Medications Atorvastatin Calcium (ATORVASTATIN CALCIUM) 20 Mg Tablet, 1 TAB PO DAILY for Hypercholesterolemia, #30 TAB 5 Refills 11/12/18 Lidocaine (Aspercreme) 1 Each Adh..patch, 1 EACH TP PRN DAILY PRN for leg pain, PATCH 11/12/18 Lisinopril (LISINOPRIL) 40 Mg Tablet, 40 PO DAILY for FOR HYPERTENSION, #30 TAB 0 Refills 07/21/18 Amlodipine Besylate (AMLODIPINE BESYLATE) 10 Mg Tablet, 10 MG PO DAILY for HTN, TAB 07/21/18 Omeprazole (OMEPRAZOLE) 20 Mg Capsule.dr, 20 MG PO DAILY for GERD, CAP 07/21/18 Alprazolam (ALPRAZOLAM) 0.5 Mg Tablet, 0.5 MG PO PRN Q6HRS PRN for ANXIETY / AGITATION, TAB 0 Refills 07/21/18 Fluticasone/Salmeterol (ADVAIR 250-50 DISKUS) 1 Each Disk.w.dev, IH BID for asthma, INHALER 07/21/18 Albuterol Sulfate (PROAIR HFA INHALER) 8.5 Gm Hfa.aer.ad, INH PRN Q6HRS PRN for SHORTNESS OF BREATH, INHALER 0 Refills 07/21/18 Fluticasone Propionate (Flonase Allergy Relief) 9.9 Ml [place].susp, 2 SPRAYS NS DAILY for seasonal allergies, BOTTLE 07/21/18 Discontinued Reported Medications Sertraline Hcl (ZOLOFT) 100 Mg Tablet, 100 MG PO DAILY for ANTI-DEPRESSANT, TAB 0 Refills 07/21/18 Hydrochlorothiazide (HYDROCHLOROTHIAZIDE CAPSULE ) 12.5 Mg Capsule, 1 CAP PO DAILY for DIURETIC, CAP 0 Refills 07/21/18 SADAF ALANIZ MD Nov 14, 2018 09:29
[2018-11-14 11:10] VITALS: BP 106/63
--- NOTE | 2018-11-14 11:35 | EEG ---
DATE OF SERVICE: 11/13/2018 EEG NUMBER: [id number]. OBJECTIVE: This is an 83-year-old female patient with episodes of syncope versus seizure. EEG was requested to help with rule out seizure. METHODS: Twenty electrodes were applied according to the international 10-20 electrode placement system. EKG monitoring, hyperventilation, intermittent photic stimulation, monopolar and bipolar montages are routinely utilized. The record was obtained on a digital system with video monitoring. FINDINGS: 1. Background: The patient was recorded in the awake, drowsy and sleep states. The overall background amplitude is 5-15 microvolts. A posterior dominant rhythm of 7-8 Hz is observed, but is in the 8 Hz range mot time. 2. Abnormalities: No specific epileptiform discharge or electrographic seizure is seen. No focal or diffuse slowing. 3. Activation: Hyperventilation was performed with fair efforts and normal response. Intermittent photic stimulation was performed with photic driving. No specific epileptiform discharge or electrographic seizure is seen, obviously induced. IMPRESSION: This EEG is a borderline study for the awake, drowsy and sleep states. The posterior dominant rhythm of 7-8 Hz is observed, but is in the 8 Hz range most of the time. No focal, lateralizing, specific epileptiform discharge or electrographic seizure is seen. SHAKEEL HOLDER MD DR: Jorge JOB#: [id number] / [id number] LEX
[2018-11-14] MEDS: cefTRIAXone IV Push 1 GM VIAL. IVP SCH (11:43)
--- NOTE | 2018-11-14 13:32 | PDOC ---
PROGRESS NOTES Assessment Assessment Syncopal spells. Seizure evaluation. Hypokalemia, K+ 2.7. HTN. HLD. Obesity. RECOMMENDATIONS/PLAN: Treat medical diseases. FU with PCP. Discussed in a great detail with her and her daughter about cognitive protection and mental and physical exercise on 11/14/18. EEG on 11/13/18: Borderline study or WNL. No seizure activity. PAST MEDICAL HISTORY: Generalized anxiety disorder for which she had previously been on sertraline. She did not think she needed it anymore, so she discontinued it early September. She is spiral downhill and restarted it about 2 weeks ago. Depression. Asthma. Gastroesophageal reflux disease. Hyperlipidemia. Hypertension. MRI noted chronic small vessel disease previously. 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 Longstanding word finding difficulties which have worsened. History of cardiac ablation. Hysterectomy. ALLERGIES: No known allergies to drugs. FAMILY HISTORY: Noncontributory. SOCIAL HISTORY: She quit smoking 22 years ago. She only rarely drinks alcohol. She has been a for 22 years. She lives alone, although at times various family members have lived with her. REVIEW OF SYSTEMS: She does not have headache. She has had some diminished vision. She has diminished hearing and uses bilateral hearing aids. She has been able to chew and swallow without difficulty. She has not had cough, cold or shortness of breath. There has been no chest pain. She occasionally has abdominal pain. She does have some bone and joint pain in the left knee and radiates down the left leg. She has not had fever or rash. She does have constipation, which has been helped by taking in prunes and bran cereal. She does not have genitourinary complaints. She does not complain of focal numbness. She feels generally weak. She normally gets around without a walker or cane but does not walk a long distance. She does complain of a great deal of anxiety as well as some depression. She does not complain of excessive bruising, bleeding or swelling. MEDICATIONS: Refer to TOAN PHYSICAL EXAMINATION: General appearance in no acute distress. HEENT: Normocephalic and nontraumatic. Eyes, nose, ears, and throat are unremarkable. Hearing decrease. Neck is supple. No lymphadenopathy. No Crepitus. Cardiovascular: S1, S2, regular rate and rhythm. Pulmonary: Clear to auscultation bilaterally. Abdomen: Bowel sounds are positive. Abdomen is soft, nontender, and nondistended. Extremities: No rash, lesions, or edema. No restriction of range of motion NEUROLOGICAL EXAMINATION: Awake. Partially oriented to time, place and person. PERRL. EOMI. CN: no focal findings. Muscle tone: within normal. Muscle strength: 4+ DTR: 2 Plantar reflex: Flexor response bilaterally Gait: Able to walk with a walker. Sensory exam: no abnormal findings. No cerebellar signs elicited. F-T-N test fine. Objective Objective Vital Signs Date Time Temp Pulse Resp B/P (MAP) Pulse Ox O2 Delivery O2 Flow Rate FiO2 11/14/18 11:10 97.4 74 16 106/63 (77) 97 Room Air 97.4 Intake and Output 11/14/18 06:59 Intake Total 1550 ml Output Total 400 ml Balance 1150 ml Intake Oral 1550 ml Output Urine Total 400 ml # Voids 1 Vitals Signs Vitals VS - Last 72 Hours, by Label Date Time Temp Pulse Resp B/P (MAP) Pulse Ox O2 Delivery O2 Flow Rate FiO2 11/14/18 11:10 97.4 74 16 106/63 (77) 97 Room Air 97.4 11/14/18 09:05 64 132/72 11/14/18 09:05 64 132/72 11/14/18 08:00 Room Air 11/14/18 07:00 97.8 64 16 132/72 (92) 96 Room Air 97.8 11/14/18 03:56 97.6 69 18 142/67 (92) 92 Room Air 97.6 11/13/18 23:15 98.0 65 18 109/45 (66) 95 Room Air 98.0 11/13/18 20:30 Room Air 11/13/18 19:10 97.6 63 18 122/62 (82) 95 Room Air 97.6 109/68 (82) 114/60 (78) 11/13/18 15:01 97.7 67 18 120/70 (87) 94 Room Air 97.7 11/13/18 11:00 97.5 72 18 125/55 (78) 94 Room Air 97.5 11/13/18 08:24 70 134/67 11/13/18 08:24 62 138/67 11/13/18 08:00 Room Air 11/13/18 07:10 70 18 134/67 (89) 93 Room Air 11/13/18 07:05 62 18 138/67 (90) 94 Room Air 11/13/18 07:00 97.8 59 18 143/63 (89) 91 Room Air 97.8 Laboratory Laboratory Laboratory Tests Test 11/14/18 05:50 Sodium Level 144 mmol/L (136-145) Potassium Level 3.6 mmol/L (3.5-5.1) Chloride Level 108 mmol/L (98-107) Carbon Dioxide Level 27 mmol/L (21-32) Anion Gap 9 (6-14) Blood Urea Nitrogen 15 mg/dL (7-20) Creatinine 0.8 mg/dL (0.6-1.0) Estimated GFR (Cockcroft-Gault) 68.8 Glucose Level 84 mg/dL (70-99) Calcium Level 8.6 mg/dL (8.5-10.1) Microbiology 11/11/18 Urine Culture - Final, Complete 11/11/18 Urine Culture Result 1 (ROSITA) - Final, Complete Comment Review of Relevant I have reviewed the following items gilbert (where applicable) has been applied. SHAKEEL HOLDER MD Nov 14, 2018 13:32
[2018-11-14 15:00] VITALS: BP 123/67
--- NOTE | 2018-11-14 15:25 | NUR ---
Gave report to Estelita PHILLIPS at [facility].DC tele monitor and IV this morning. Family educated with diet and standby assist.
--- NOTE | 2018-11-14 17:05 | NUR ---
Transportation picked up patient in wheelchair with belongings and family en route.
--- NOTE | 2018-11-14 17:55 | PDOC ---
CARDIO Progress Notes Date and Time Date of Service 11/14/2018 Time of Evaluation 1400 Subjective Subjective: No Chest Pain, No shortness of breath, No Palpitations Vitals Vitals Vital Signs Date Time Temp Pulse Resp B/P (MAP) Pulse Ox O2 Delivery O2 Flow Rate FiO2 11/14/18 15:00 97.4 61 16 123/67 (85) 97 Room Air 97.4 Weight Weight [ ] Input and Output Intake and Output Intake and Output 11/14/18 07:00 Intake Total 1550 ml Output Total 400 ml Balance 1150 ml Intake Oral 1550 ml Output Urine Total 400 ml # Voids 1 Laboratory Labs Laboratory Tests Test 11/14/18 05:50 Sodium Level 144 mmol/L (136-145) Potassium Level 3.6 mmol/L (3.5-5.1) Chloride Level 108 mmol/L (98-107) Carbon Dioxide Level 27 mmol/L (21-32) Anion Gap 9 (6-14) Blood Urea Nitrogen 15 mg/dL (7-20) Creatinine 0.8 mg/dL (0.6-1.0) Estimated GFR (Cockcroft-Gault) 68.8 Glucose Level 84 mg/dL (70-99) Calcium Level 8.6 mg/dL (8.5-10.1) Microbiology Micro Microbiology 11/11/18 Urine Culture - Final, Complete 11/11/18 Urine Culture Result 1 (ROSITA) - Final, Complete Physical Exam HEENT: Neck Supple W Full Motion Chest: Symmetric LUNGS: Clear to Auscultation Heart: S1S2, RRR Abdomen: Soft N/T Extremities: No Calf Tenderness Neurology: alert, oriented, follow commands Assessment Assessment 1. Syncopal episode: Possibly from dehydration but arrhythmia is possible with noted low K 2. Hypertension; controlled. EF and WM nml 3. Hypokalemia: resolved 4. TEDOORA: resolved 5. Mild 6. H/o tachyarrhythmia s/p ablation in 1999 at [facility] Recommendations 1. Consider for outpt event monitor after SNU discharge. 2. Follow up with our group or [facility] after DC in SNU DANIELLA LA APRN Nov 14, 2018 17:55
== END 2018-11-14 17:00 | disposition home or self-care (01) | DRG 683 ==
LOC: ER 20:13 → 6 SOUTH 21:30
PROVIDERS: ADMIT Family Medicine; ATTEND Family Medicine
DX: N17.9 Acute kidney failure, unspecified (principal); N39.0 Urinary tract infection, site not specified; E87.6 Hypokalemia; E16.2 Hypoglycemia, unspecified; E66.9 Obesity, unspecified; E78.00 Pure hypercholesterolemia, unspecified; E78.5 Hyperlipidemia, unspecified; F03.90 Unspecified dementia, unspecified severity, without behavioral disturbance, psychotic disturbance, mood disturbance, and anxiety; F32.9 Major depressive disorder, single episode, unspecified; G51.0 Bell's palsy; F41.1 Generalized anxiety disorder; I10 Essential (primary) hypertension; I35.0 Nonrheumatic aortic (valve) stenosis; I73.9 Peripheral vascular disease, unspecified; J45.909 Unspecified asthma, uncomplicated; K21.9 Gastro-esophageal reflux disease without esophagitis; R32 Unspecified urinary incontinence; Z82.49 Family history of ischemic heart disease and other diseases of the circulatory system; Z86.73 Personal history of transient ischemic attack (TIA), and cerebral infarction without residual deficits; Z90.710 Acquired absence of both cervix and uterus; Z87.891 Personal history of nicotine dependence; Z68.32 Body mass index [BMI] 32.0-32.9, adult
CPT/HCPCS: 36415; 70450; 71045; 80048; 80053; 81001; 82607; 83735; 84443; 84484; 85025; 87086; 93005; 93306; 95816; 96360; J0696; J3480; J7030; J7040; 97116; 97530; 97535; 99285-25; G0378

== ENCOUNTER 2020-09-18 20:55 | Emergency (ER) | payer MEDICARE ==
[~2020-09-18] VITALS: Ht 152.4 cm; Wt 54.5 kg
[~2020-09-18 20:55] MED LIST changes: +AMLO-187 PO; -AMLO10TA8 PO; +ASPI-886 PO; +ATOR20TA58 PO; +AZEL137S3 NS; +BENZ-8 PO; +DONE10TA61 PO; +DONE10TA7 PO; +FERR325T14 PO; +FLUT16SP NS; +FLUT1BLS9 IH; +IPRA15SP NS; +LIDO1ADH44 TP; +LOSA100T14 PO; +METO25TA4 PO; +MIRT-7 PO; -OMEP20CA10 PO; +OMEP20CA16 PO; +SERT-267 PO; +VENL37.5 PO; +VENL75CA6 PO
[2020-09-18] MEDS ORDERED: IV NORMAL SALINE 1000ML BAG 1,000 ML IV ONE (21:30)
--- NOTE | 2020-09-18 22:07 | RAD ---
Exam: CT head, maxillofacial and cervical spine without contrast INDICATION: Fall yesterday TECHNIQUE: Sequential axial images through the head, face and cervical spine were obtained without th e administration of IV contrast. Exposure: One or more of the following in the visualized dose reduction techniques were utilized for this examination: 1. Automated exposure control 2. Adjustment of the MA and/or KV according to patient size 3. Use of iterative of reconstructive technique Comparisons: None FINDINGS: Head: No focal parenchymal lesion or hemorrhage is identified. There is no midline shift or sulcal effaceme nt. Patchy hypodensity in the periventricular white matter. No acute vascular territory infarction is rudy ntified. Ramirez-white distinction is preserved. The ventricular system is within normal limits without compression hydrocephalus. The basal cisterns are well maintained. Face: The visualized portions of the paranasal sinuses and mastoid air cells are well-pneumatized. No acute fractures. Globes and orbital contents are normal. Cervical spine: Vertebral body heights and alignment are well-maintained. Fracture to the cervical spine is not identified. Multilevel spondylotic change in cervical spine with degenerative disc disease greatest at C4-C5, C5- C6 and C6-C7. Mild bilateral facet arthropathy is also noted in cervical spine. Visualized paraspinal soft tissues are unremarkable. IMPRESSION: 1. No acute intracranial abnormality. 2. No acute traumatic injury at the face. 3. Negative CT C-spine for acute traumatic injury. Electronically signed by: Sterling Waterman MD (09/18/2020 10:05 PM) [facility]
--- NOTE | 2020-09-18 22:10 | PHYS DOC ---
Past Medical History Past Medical History: Anxiety, Asthma, Bronchitis, Depression, GERD, High Cholesterol, Hypertension, Stroke Additional Past Medical Histor: LOW POTASSIUM, SYNCOPE, bradycardia Past Surgical History: Hysterectomy, Other Additional Past Surgical Histo: CARDIAC ABLASION, pacemaker Smoking Status: Former Smoker Alcohol Use: None Drug Use: None General Adult EDM: Chief Complaint: ALTERED MENTAL STATUS HPI: HPI: Patient is a 85 year old female who was brought here by EMS from home due to altered mental status. Patient has severe dementia, who is DNR, who was in hospice care. Per family, patient has been bedbound due to increased weakness in the lower extremity. 3 days ago she was trying to get out of bed and she fell out, hit her head on the ground. Patient sleeps in a hospital bed at home. Tonight patient was acting very confused , had several vomiting episodes today, her daughter decided to call EMS to take her here for evaluation. Review of Systems: Review of Systems: Constitutional: Denies fever or chills. [] Eyes: Denies change in visual acuity. [] HENT: Denies nasal congestion or sore throat. [] Respiratory: Denies cough or shortness of breath. [] Cardiovascular: Denies chest pain or edema. [] GI: Denies abdominal pain, nausea, vomiting, bloody stools or diarrhea. [] : Denies dysuria. [] Musculoskeletal: Denies back pain or joint pain. [] Integument: Denies rash. [] Neurologic: Denies headache, focal weakness or sensory changes. [] Endocrine: Denies polyuria or polydipsia. [] Lymphatic: Denies swollen glands. [] Psychiatric: Denies depression or anxiety. [] Heart Score: C/O Chest Pain: N/A Risk Factors: Risk Factors: DM, Current or recent (<one month) smoker, HTN, HLP, family history of CAD, obesity. Risk Scores: Score 0 - 3: 2.5% MACE over next 6 weeks - Discharge Home Score 4 - 6: 20.3% MACE over next 6 weeks - Admit for Clinical Observation Score 7 - 10: 72.7% MACE over next 6 weeks - Early Invasive Strategies Current Medications: Current Medications Medications (Trade) Dose Ordered Sig/Thaddeus Start Time Stop Time Status Last Admin Dose Admin Sodium Chloride 1,000 ml @ 1,000 mls/hr 1X ONCE 09/18/20 21:30 09/18/20 22:29 09/18/20 22:04 1,000 MLS/HR Allergies: Allergies: Allergies Coded Allergies Type Severity Reaction Last Updated Verified No Known Drug Allergies 07/21/18 No Physical Exam: PE: Constitutional: Well developed, well nourished, no acute distress, non-toxic appearance. [] HENT: Normocephalic, right-sided facial contusion, right side temporal contusion, bilateral external ears normal, oropharynx moist, no oral exudates, nose normal. [] Eyes: PERRLA, EOMI, conjunctiva normal, no discharge. [] Neck: Normal range of motion, no tenderness, supple, no stridor. [] Cardiovascular:Heart rate regular rhythm, no murmur [] Lungs & Thorax: Bilateral breath sounds clear to auscultation [] Abdomen: Bowel sounds normal, soft, no tenderness, no masses, no pulsatile masses. [] Skin: Warm, dry, no erythema, no rash. [] Back: No tenderness, no CVA tenderness. [] Extremities: No tenderness, no cyanosis, no clubbing, ROM intact, no edema. There is no tenderness to palpation of her right shoulder, no tenderness to palpation of her right elbow, no tenderness to palpation of her right hip. Neurologic: Patient appears somnolent but arousable to verbal command, she was observed moving all her extremities. Psychologic: Affect normal, judgement normal, mood normal. [] EKG: EKG: EKG was done at 933, heart rate 77 bpm, sinus rhythm, no ST segment elevation, normal axis Radiology/Procedures: Radiology/Procedures: [][facility] [address] [place] [address] IMAGING REPORT Signed PATIENT: MAURICIO GALICIA ACCOUNT: [id number] : 1935 LOCATION: ER AGE: 85 SEX: F EXAM STATUS: REG ER ORD. PHYSICIAN: MARICEL BRANCH DO REASON: FELL, RIGHT SIDE FACIAL INJURY PROCEDURE: CT MAXILLOFACIAL WO CONTRAST Exam: CT head, maxillofacial and cervical spine without contrast INDICATION: Fall yesterday TECHNIQUE: Sequential axial images through the head, face and cervical spine were obtained without the administration of IV contrast. Exposure: One or more of the following in the visualized dose reduction techniques were utilized for this examination: 1. Automated exposure control 2. Adjustment of the MA and/or KV according to patient size 3. Use of iterative of reconstructive technique Comparisons: None FINDINGS: Head: No focal parenchymal lesion or hemorrhage is identified. There is no midline shift or sulcal effacement. Patchy hypodensity in the periventricular white matter. No acute vascular territory infarction is identified. Ramirez-white distinction is preserved. The ventricular system is within normal limits without compression hydroce phalus. The basal cisterns are well maintained. Face: The visualized portions of the paranasal sinuses and mastoid air cells are well- pneumatized. No acute fractures. Globes and orbital contents are normal. Cervical spine: Vertebral body heights and alignment are well-maintained. Fracture to the cervical spine is not identified. Multilevel spondylotic change in cervical spine with degenerative disc disease greatest at C4-C5, C5-C6 and C6-C7. Mild bilateral facet arthropathy is also noted in cervical spine. Visualized paraspinal soft tissues are unremarkable. IMPRESSION: 1. No acute intracranial abnormality. 2. No acute traumatic injury at the face. 3. Negative CT C-spine for acute traumatic injury. Electronically signed by: Sterling Gayle MD (09/18/2020 10:05 PM) [facility] DICTATED and SIGNED BY: STERLING GAYLE MD DATE: 09/18/20 [id number] 0 Course & Med Decision Making: Course & Med Decision Making Pertinent Labs and Imaging studies reviewed. (See chart for details) Patient is a 85-year-old female who had severe dementia, DNR, and hospice care due to severe dementia, was taken here by EMS from home due to confusion and general weakness. Patient fell and hit her head 3 days ago, CT scan of head, C- spine, and facial bones did not show any acute problem. Patient was felt to have a urinary tract infection. Patient was given IV Rocephin in the ER. Patient daughters and son-in-law were here, would like to take her back home and reenroll her back into hospice care. Dragon Disclaimer: Dragon Disclaimer: This electronic medical record was generated, in whole or in part, using a voice recognition dictation system. Departure Departure Impression: Primary Impression: Urinary tract infection Additional Impression: Concussion Disposition: HOME / SELF CARE / HOMELESS Condition: STABLE Referrals: SADAF ALANIZ MD (PCP) Follow up with your doctor as needed next week. Patient Instructions: Concussion and Brain Injury, Urinary Tract Infection Additional Instructions: Thank you for visiting our Emergency Department. We appreciate you trusting us with your care. If any additional problems come up don't hesitate to return to visit us. Please follow up with your primary care provider so they can plan additional care if needed and know about the problem that you had. If symptoms worsen come back to the Emergency Department. Any concerning symptoms that start such as chest pain, shortness of air, weakness or numbness on one side of the body, running high fevers or any other concerning symptoms return to the ER. Scripts Cephalexin (CEPHALEXIN) 500 Mg Capsule 1 CAP PO QID for 7 Days, #28 CAP Prov: MARICEL BRANCH DO 09/18/20 MARICEL BRANCH DO Sep 18, 2020 22:10
[2020-09-18 22:24] LABS: BASO # 0.1 x10^3/uL (0.0-0.2); BASO % 1 % (0-3); EOS # 0.2 x10^3/uL (0.0-0.7); EOS % 3 % (0-3); HEMATOCRIT 33.8 % (36.0-47.0); HEMOGLOBIN 11.2 g/dL (12.0-15.5); LYMPH # 0.9 x10^3/uL (1.0-4.8); LYMPH % 11 % (24-48); MEAN CORPUSCULAR HEMOGLOBIN 29 pg (25-35); MEAN CORPUSCULAR HGB CONC 33 g/dL (31-37); MEAN CORPUSCULAR VOLUME 88 fL (79-100); MONO # 0.5 x10^3/uL (0.0-1.1); MONO % 6 % (0-9); NEUT # 6.5 x10^3/uL (1.8-7.7); NEUT % 80 % (31-73); PLATELET COUNT 255 x10^3/uL (140-400); RED BLOOD COUNT 3.85 x10^6/uL (3.50-5.40); RED CELL DISTRIBUTION WIDTH 13.1 % (11.5-14.5); WHITE BLOOD COUNT 8.1 x10^3/uL (4.0-11.0)
[2020-09-18 22:25] LABS: BILIRUBIN,URINE NEGATIVE (NEG); CLARITY,URINE CLOUDY; COLOR,URINE YELLOW; NITRITE,URINE NEGATIVE (NEG); PROTEIN,URINE 30 mg/dL (NEG-TRACE); UROBILINOGEN,URINE 0.2 mg/dL (0.2 mg/dL)
[2020-09-18 22:33] LABS: CALCIUM 8.6 mg/dL (8.5-10.1); POTASSIUM 3.2 mmol/L (3.5-5.1)
[2020-09-18 22:33] LABS: HYALINE CASTS, URINE FEW /HPF
[2020-09-18 22:34] LABS: WBC,URINE TNTC /HPF (0-4)
[2020-09-18 22:38] LABS: BACTERIA,URINE MODERATE /HPF (0-FEW)
[2020-09-18 22:38] LABS: ALBUMIN 2.8 g/dL (3.4-5.0); ALBUMIN/GLOBULIN RATIO 0.8 (1.0-1.7); MAGNESIUM 1.8 mg/dL (1.8-2.4); TOTAL BILIRUBIN 0.2 mg/dL (0.2-1.0); TOTAL PROTEIN 6.5 g/dL (6.4-8.2)
[2020-09-18] MEDS ORDERED: cefTRIAXone IV Push 1 GM VIAL. IVP ONE (23:00)
[2020-09-18] MEDS ORDERED: CEPH500C PO (23:39)
[2020-09-19] MEDS ORDERED: LORazepam 0.5 MG TABLET PO ONE
[2020-09-19 02:57] VITALS: BP 131/61
--- NOTE | 2020-09-19 04:22 | EKG ---
[facility] [address] [place] [address] Test Date: 2020-09-18 Test Time: 21:27:45 Pat Name: MAURICIO GALICIA Department: Room: Gender: F Distance Learning [employer] Leader: : 1935 Requested By: MARICEL BRANCH Order Number: [id number] Reading MD: Jonas Whitt Measurements Intervals [place] Rate: 77 P: 0 ID: [id number] QRS: 27 QRSD: 72 T: 38 QT: 392 QTc: 445 Interpretive Statements SINUS RHYTHM NORMAL ECG Electronically Signed On 09-24-2020 12:44:24 CDT by Jonas Whitt
== END 2020-09-19 00:01 | disposition home or self-care (01) ==
LOC: ER 20:55
DX: S06.0X9A Concussion with loss of consciousness of unspecified duration, initial encounter (principal); N39.0 Urinary tract infection, site not specified; S00.83XA Contusion of other part of head, initial encounter; F03.90 Unspecified dementia, unspecified severity, without behavioral disturbance, psychotic disturbance, mood disturbance, and anxiety; F41.9 Anxiety disorder, unspecified; J45.909 Unspecified asthma, uncomplicated; F32.9 Major depressive disorder, single episode, unspecified; K21.9 Gastro-esophageal reflux disease without esophagitis; E78.00 Pure hypercholesterolemia, unspecified; I10 Essential (primary) hypertension; Z86.73 Personal history of transient ischemic attack (TIA), and cerebral infarction without residual deficits; Z95.0 Presence of cardiac pacemaker; W17.89XA Other fall from one level to another, initial encounter; Y93.89 Activity, other specified; Y92.89 Other specified places as the place of occurrence of the external cause; Y99.8 Other external cause status
CPT/HCPCS: 36415; 70450; 70486; 72125; 80053; 81001; 83735; 84484; 85025; 87077; 87086; 87186; 93005; 96361; 96374; 99285; J0696; J7030